=== PATIENT | female | born 1990 | race Hispanic/Latino ===

== ENCOUNTER 2016-11-22 14:25 | Emergency (ER) | payer SELFPAY ==
[~2016-11-22] VITALS: Ht 157.5 cm; Wt 59.0 kg
--- NOTE | 2016-11-22 15:59 | ED Lower Extremity ---
General Chief Complaint: Lower Extremity Stated Complaint: FOOT/ANKLE PAIN Nursing Triage Note: ARRIVED VIA WC TO ROOM 09. COMPLAINS OF RIGHT ANKLE PAIN. STATES SHE TWISTED IT YESTERDAY PLAYING SOCCER Nursing Sepsis Screen: No Definite Risk Source: patient, spouse Exam Limitations: language barrier ( translates for the patient.) History of Present Illness Time seen by provider: 15:59 Initial Comments 26 yo female patient presents to the emergency department with complaints of right ankle pain after twisting it yesterday while playing soccer. Patient is unable to bear weight on the right ankle. Onset: yesterday Pain/Injury Location: right ankle Method of Injury: twisted Modifying Factors: Improves With Immobilization, Worse With Movement Allergies and Home Medications Allergies Coded Allergies: No Known Drug Allergies (Unverified , 11/22/16) Home Medications Hydrocodone/Acetaminophen 1 Each Tablet, 1 EACH PO Q4H PRN for PAIN, #30 Ref 0 Prescribed by: TIARA MOCK on 11/22/16 1613 Constitutional: no symptoms reported Respiratory: no symptoms reported Cardiovascular: no symptoms reported Musculoskeletal: see HPI, joint pain (rt ankle), joint swelling (rt ankle) Skin: change in color (bruising rt ankle) Psychiatric/Neurological: Denies Numbness, Denies Paresthesia, Denies Tingling , Denies Weakness All Other Systems Reviewed Negative Unless Noted: Yes (Negative excepted noted.) Past Uqhaorq-[id number]-Wiihrq Hx Patient Social History Recent Foreign Travel: No Contact w/Someone Who Travel: No Recent Infectious Disease Expo: No Surgeries History of Surgeries: Yes Surgeries: Section Respiratory History of Respiratory Disorde: No Cardiovascular History of Cardiac Disorders: No Neurological History of Neurological Disord: No Genitourinary History of Genitourinary Disor: No Musculoskeletal History of Musculoskeletal Dis: No Endocrine History of Endocrine Disorders: No HEENT History of HEENT Disorders: No Cancer History of Cancer: No Psychosocial History of Psychiatric Problem: No Integumentary History of Skin or Integumenta: No Reviewed Nursing Assessment Reviewed/Agree w Nursing PMH: Yes Family Medical History Significant Family History: No Pertinent Family Hx Physical Exam Vital Signs Vital Sign - Last 12Hours 11/22/16 11/22/16 15:34 16:57 Temp 98.0 Pulse 86 Resp 16 B/P (MAP) 127/74 Pulse Ox 98 O2 Delivery Room Air Capillary Refill : Less Than 3 Seconds General Appearance: WD/WN, no apparent distress Cardiovascular: normal peripheral pulses Hips: bilateral hip non-tender, bilateral hip normal inspection, bilateral hip normal range of motion, bilateral hip no evidence of injury Legs: bilateral leg non-tender, bilateral leg normal inspection, bilateral leg normal range of motion, bilateral leg no evidence of injury Knees: bilateral knee non-tender, bilateral knee normal inspection, bilateral knee normal range of motion, bilateral knee no evidence of injury Ankles: left ankle non-tender, left ankle normal inspection, left ankle normal range of motion, left ankle no evidence of injury, right ankle bone tenderness, right ankle ecchymosis, right ankle limited range of motion, right ankle pain, right ankle soft tissue tenderness, right ankle swelling Feet: bilateral foot non-tender, bilateral foot normal inspection, bilateral foot normal range of motion, bilateral foot no evidence of injury Neurologic/Tendon: normal sensation, normal motor functions, normal tendon functions, responds to pain, no evidence tendon injury Neurologic/Psychiatric: no motor/sensory deficits, alert, normal mood/affect, oriented x 3 Skin: normal color, warm/dry, ecchymosis (ecchymosis right ankle) Splinting and Joint Reduction : Location: right ankle Pre-Proc Neuro Vasc Exam: normal Post-Proc Neuro Vasc Exam: normal Hand-Made Type: orthoglass Splint Application: Short Leg (stirrup and posterior short leg splint applied) Progress/Results/Core Measures Results/Orders My Orders Orders - TIARA MOCK Ankle, Right, 3 Views (11/22/16 15:55) Vital Signs/I&O Vital Sign - Last 12Hours 11/22/16 11/22/16 15:34 16:57 Temp 98.0 Pulse 86 88 Resp 16 18 B/P (MAP) 127/74 Pulse Ox 98 98 O2 Delivery Room Air Blood Pressure Mean: 91 Diagnostic Imaging Diagonstic Imaging: Xray Plain Films/CT/US/NM/MRI: ankle Comments FINDINGS: There is an oblique fracture involving the metaphyseal portion of the distal fibula. There is also a transverse fracture of the medial malleolus and a nondisplaced fracture of the posterior malleolus of the tibia. Ankle mortise is in good alignment. No evidence of separation of the syndesmosis. The talar plafond is smooth. There is soft tissue swelling noted. IMPRESSION: Nondisplaced trimalleolar fracture. Dictated by: Dictated on workstation # [id number] Reviewed: Reviewed by Me (radiology report reviewed by me) Departure Communication (Admissions) Progress Notes Patient seen and evaluated. X-ray of the right ankle obtained. Patient repeatedly refused pain medication during the visit. Right ankle was splinted. Plan for discharge to home with follow-up as an outpatient with Dr. Desai or the ortho surgeon of their choice. Patient's states they brought crutches with them. Impression Impression: Primary Impression: Trimalleolar fracture of right ankle Qualified Codes: S82.851A - Displaced trimalleolar fracture of right lower leg , initial encounter for closed fracture Disposition: HOME, SELF-CARE Condition: Improved Departure-Patient Inst. Decision time for Depature: 16:12 Referrals: NO,LOCAL PHYSICIAN (PCP) Primary Care Physician MAYUR DESAI MD Patient Instructions: Ankle Fracture (DC) Add. Discharge Instructions: All discharge instructions reviewed with patient and/or family. Voiced understanding. Medications as instructed. No ibuprofen or Aleve. Elevate the right ankle on pillows. Ice packs as needed for pain. Use the crutches at all times until released by Dr. Desai. Keep the splint clean and dry. Do not put weight on the rt foot/ankle until released by Dr. Desai. Follow-up with Dr. Desai at [address] as an outpatient within the next 7 days. Call tomorrow morning for appointment time. Return to the emergency department for worsened pain, pain from the splint, discoloration of the toes, or any other concerns. Scripts Hydrocodone/Acetaminophen (Hydrocodon -Acetaminophen 5-325) 1 Each Tablet 1 EACH PO Q4H Y for PAIN, #30 TAB 0 Refills Prov: TIARA MOCK 11/22/16 Work/School Note: Work Release Form Date Seen in the Emergency Department: Nov 22, 2016 Return to Work: Nov 25, 2016 Other Restrictions Listed Below: non-weight bearing on the rt ankle until released by Dr. Desai. TIARA MOCK Nov 22, 2016 15:59
--- NOTE | 2016-11-22 16:07 | Diagnostic Imaging Report ---
INDICATION: Twisted ankle in hole. EXAMINATION: Three views of the right ankle. FINDINGS: There is an oblique fracture involving the metaphyseal portion of the distal fibula. There is also a transverse fracture of the medial malleolus and a nondisplaced fracture of the posterior malleolus of the tibia. Ankle mortise is in good alignment. No evidence of separation of the syndesmosis. The talar plafond is smooth. There is soft tissue swelling noted. IMPRESSION: Nondisplaced trimalleolar fracture. Dictated by: Dictated on workstation # [id number]
[2016-11-22] MEDS ORDERED: HYDR-3812 PO (16:13)
[2016-11-22 16:57] VITALS: BP 117/76
== END 2016-11-22 16:57 | disposition home or self-care (01) ==
LOC: ER 14:29
DX: S82.854A Nondisplaced trimalleolar fracture of right lower leg, initial encounter for closed fracture (principal); Z87.59 Personal history of other complications of pregnancy, childbirth and the puerperium; X50.0XXA Overexertion from strenuous movement or load, initial encounter; Y93.66 Activity, soccer
CPT/HCPCS: 29515; 73610